=== PATIENT | male | born 1970 | race Caucasian/White ===

== ENCOUNTER 2023-07-30 10:52 | Day surgery (SDC) | payer BC ==
[~2023-07-30] VITALS: Ht 177.8 cm; Wt 96.3 kg
[~2023-07-30 10:52] MED LIST: EZET10TA21 PO; SILD100T
[2023-07-30] MEDS ORDERED: LR 1,000 ML IV SCH ×2 (11:25→15:45)
[2023-07-30] MEDS ORDERED: fentaNYL 100 MCG/2 ML INJECTION As Ordered ONE (12:39)
[2023-07-30] MEDS ORDERED: MIDAZOLAM INJ 2MG/2ML VIAL As Ordered ONE (12:39)
[2023-07-30] MEDS ORDERED: ROCURONIUM BROMIDE 50MG/5ML VIAL As Ordered ONE (12:43)
[2023-07-30] MEDS ORDERED: LIDOCAINE 2% 100MG/5ML SDV (FOR ANES.) As Ordered ONE (12:43)
[2023-07-30] MEDS: COCAINE 4% 4ML NASAL SOLUTION BTL As Ordered ONE (13:56)
[2023-07-30] MEDS ORDERED: ACETAMINOPHEN 1000MG 100ML IV BAG As Ordered ONE (13:57)
[2023-07-30] MEDS ORDERED: propofoL 200 MG/20 ML VIAL As Ordered ONE (13:58)
[2023-07-30] MEDS ORDERED: SUGAMMADEX SODIUM 500 MG/5 ML VIAL (BRIDION) As Ordered ONE (13:58)
[2023-07-30] MEDS ORDERED: ONDANSETRON 4MG 2ML VIAL As Ordered ONE (13:59)
[2023-07-30] MEDS ORDERED: ePHEDrine SULFATE 25 MG/5 ML(5MG/ML) SYRINGE As Ordered ONE (14:05)
[2023-07-30] MEDS ORDERED: PHENYLephrine 500MCG 5ML (100MCG/ML) SYRINGE As Ordered ONE (14:09)
[2023-07-30] MEDS: LIDOCAINE W/EPINEPHRINE 1% 20ML VIAL As Ordered ONE (14:40)
[2023-07-30] MEDS: OXYMETAZOLINE 0.05% NASAL SPRAY (AFRIN) As Ordered ONE (14:45)
[2023-07-30] MEDS ORDERED: MORPHINE 2 MG/ML 1ML VIAL IV PRN (14:55)
[2023-07-30] MEDS ORDERED: ONDANSETRON 4MG 2ML VIAL IV PRN (14:55)
[2023-07-30] MEDS ORDERED: fentaNYL 100 MCG/2 ML INJECTION IV PRN (14:55)
[2023-07-30] MEDS ORDERED: oxyCODONE 5MG TAB PO PRN (14:55)
[2023-07-30] MEDS ORDERED: ANEXSIA, NORCO 7.5MG/325MG TABLET(HYDROCODONE/APAP) PO PRN (15:45)
[2023-07-30 15:48] VITALS: BP 110/68; TEMP 97.2; O2SAT 93
== END 2023-07-30 16:25 | disposition home or self-care (01) ==
LOC: M SDC 10:52
PROVIDERS: ATTEND Otolaryngology
DX: J34.2 Deviated nasal septum (principal); J34.3 Hypertrophy of nasal turbinates; E78.00 Pure hypercholesterolemia, unspecified; Z79.899 Other long term (current) drug therapy
CPT/HCPCS: 30140; 30520; C9143; J0131; J1100; J2250; J2371; J2405; J3010